=== PATIENT | male | born 1950 | race Caucasian/White ===

== ENCOUNTER → 2018-01-07 15:16 | Outpatient (CLI) | payer MEDICARE ==
[~2018-01-07 15:16] MED LIST: ASPIRIN EC81 M1 PO; CORDARONE200 MG PO; GLUCOPHAGE500 MG PO; K-DUR20 MEQ PO; LASIX40 MG PO; LOPRESSOR25 MG PO
[2018-02-05 14:32] VITALS: BMI 30.2
== END | disposition home or self-care (01) ==
LOC: D.US 15:16
DX: M79.605 Pain in left leg (principal); M79.604 Pain in right leg

== ENCOUNTER 2018-01-18 11:23 | Outpatient (CLI) | payer MEDICARE ==
[~2018-01-18] VITALS: Ht 167.6 cm; Wt 81.4 kg
--- NOTE | ~2018-01-18 | OP ---
PATIENT NAME: KAYCEE LIM MEDICAL RECORD: [id number] :54 LOCATION:D.CAT ADMISSION DATE: SURGEON: LAURITA OSBORN MD DATE OF OPERATION: 01/18/2018 PROCEDURE: Left heart catheterization, selective coronary angiography, right radial artery approach. CATHETERS: A 5-Albanian sheath, Brighton catheter. The procedure was well tolerated. The patient returned to the [place]ann[place]. Sheath was removed. TR band was placed. Left ventriculography in 30-degree DIOP view: Normal wall motion, normal systolic function. CORONARY ANATOMY: LEFT MAIN: Left main is free of disease. LAD: Has a long diffuse stenosis proximally of about 80% with fair target distally. CIRCUMFLEX: There is a high OM/ramus intermedius branch. This has a proximal stenosis and then at the bifurcation of the second branch has an ostial stenosis of 80%. True circumflex has about 80% stenosis, questionable target. RIGHT CORONARY: Has severe diffuse stenosis throughout its course with a fair target distally. IMPRESSION: Multivessel coronary artery disease with preserved LV systolic function given underlying diabetes, etc. Suspect better long-term with coronary bypass grafting, referred to CV surgery for that purpose. TRANSINT:[id number] Voice Confirmation ID: [id number] DOCUMENT ID: [id number] LAURITA OSBORN MD at 1505 CC: [id number] DICTATION DATE: 01/18/18 1404 LABORER CAR BARN: 01/18/18 1453 DEP CLI 01/18/[address] [address]
--- NOTE | ~2018-01-18 | HEMODYNAMI ---
PATIENT:KAYCEE LIM MEDICAL RECORD: [id number] : 54 LOCATION:[facility]N ADMISSION DATE: 01/18/18 Generatedon:01/18/201813:59 Patient name: KAYCEE LIM Patient #: [id number] SSN: : 1950 Date of study: 01/18/2018 Page: Of Hemodynamic Procedure Report Patient Data Patient Demographics Procedure consent was obtained First Name: KAYCEE Gender: Male Last Name: RAPHAEL : 1950 [facility] Initial: NALLELY Age: 67 year(s) Patient #: [id number] Race: Unknown Additional ID: [id number] Contact details Address: [address] [place] [address] State: [place] City: [place] Zip code: [address] Past Medical History Allergies: No known allergies Admission Admission Data Admission Date: 01/18/2018 Admission Time: 11:23 Procedure Procedure Types Cath Procedure Diagnostic Procedure LHC LHC w/Coronaries Sedation Charges Moderate Sedation up to 15 minutes Procedure Description Procedure Date Procedure Date: 01/18/2018 Procedure Start Time: 13:48 Procedure End Time: 13:59 Procedure Staff Name Function Hernesto Santiago MD Performing Physician Rosa Isela Herzog RT Monitor Alban Bolaños RN Nurse Mariella Verdugo RT Scrub Procedure Data Cath Procedure Fluoroscopy Diagnostic fluoroscopy Total fluoroscopy Time: 1.9 time: 1.9 min min Diagnostic fluoroscopy Total fluoroscopy dose: 608 dose: 608 mGy mGy Contrast Material Contrast Material Type Amount (ml) Isovue 370 49 Entry Location Entry Primary Successful Side Size Upsize Upsize Entry Closure Gutiérrez ccessful Closure Location (Fr) 1 (Fr) 2 (Fr) Remarks Device Remarks Radial Right 6 Fr Mechanical artery Short Compression Estimated blood loss: 5 ml Diagnostic catheters Device Type Used For End Catheter Placement DIAGNOSTIC Butler 110cm 5 LV Angiography Fr catheter ([id number]) DIAGNOSTIC Butler 110cm 5 Left Coronary Fr catheter (526395) Angiography DIAGNOSTIC Butler 110cm 5 Right Coronary Fr catheter ([id number]) Angiography Procedure Complications No complications Procedure Medications Medication Administration Route Dosage Oxygen etCO2 Nasal cannula 2 l/min Lidocaine 2% added to field 20 Heparin Flush Bag added to field 2 bags (1000units/500ml NS) 0.9% NaCl I.V. 100 ml/hr Versed I.V. 1 mg Fentanyl I.V. 50 mcg Radial Cocktail I.A. 1 syringe (Verapomil 2mg/Nitro 400mcg/Heparin 1500units) Versed I.V. 1 mg Fentanyl I.V. 50 mcg Hemodynamics Rest Heart Rate: 55 (bpm) Pressure Samples Time Site Value (mmHg) Purpose Heart Use Rate(bpm) 13:50 LV 95/13,15 EDP 72 13:51 AO 96/70(81) Pullback 62 13:51 LV 89/17,20 Pullback 62 Gradients Valve Time Site 1 Site 2 Mean SEP/DFP Peak To Heart Use (mmHg) (sec/min) Peak Rate (mmHg) (bpm) Aortic 13:51 LV AO 0 62 89/17,20 96/70(81) Calculations Valve P-P Mean Valve Index Valve Source Name Gradient Area Flow (cm2) Aortic 0 0 Snapshots Pre Cath Intra NCS Post Cath Vital Signs Time Heart Resp SPO2 etCO2 NIBP (mmHg) Rhythm Pain Sedation Rate (ipm) (%) (mmHg) Status Level (bpm) 13:25:38 52 22 99 Measuring NSR 0 (11) 10(A) , No pain 13:32:36 61 14 99 36.7 144/82(126) NSR 0 (11) 10(A) , No pain 13:37:21 61 16 95 36.7 140/75(120) NSR 0 (11) 10(A) , No pain 13:42:06 59 16 93 10.4 133/76(111) NSR 0 (11) 9(A) , No pain 13:46:46 59 16 94 28.4 123/73(96) NSR 0 (11) 9(A) , No pain 13:51:27 60 16 94 38.2 106/61(78) NSR 0 (11) 9(A) , No pain 13:56:07 60 17 93 30 118/65(91) NSR 0 (11) 10(A) , No pain Medications Time Medication Route Dose Verified Delivered Reason Notes Effectiveness by by 13:24:05 Oxygen etCO2 2 l/min Hernesto Phoenix used for Nasal St Dionicio Bolaños RN procedure cannula 13:24:10 Lidocaine 2% added 20ml Hernesto Eric for local to vial St Dionicio Santiago anesthetic field MD GARG 13:24:17 Heparin Flush added 2 bags Hernesto Phoenix used for Bag to St Dionicio Bolaños RN procedure (1000units/500ml field GARG NS) 13:24:26 0.9% NaCl I.V. 100 Hernesto Phoenix Per ml/hr St Dionicio Bolaños RN physician 13:35:12 Versed I.V. 1 mg Hernesto Phoenix for sedation St Dionicio Bolaños RN, MD 13:35:20 Fentanyl I.V. 50 mcg Hernesto Phoenix for sedation St Dionicio Bolaños RN, MD 13:49:47 Radial Cocktail I.A. 1 Hernesto Eric for (Verapomil syringe St Dionicio Santiago vasodilation 2mg/Nitro MD GARG 400mcg/Heparin 1500units) 13:49:51 Versed I.V. 1 mg Hernesto Eric for sedation St Dionicio Santiago MD, MD 13:49:54 Fentanyl I.V. 50 mcg Hernesto Eric for sedation St Dionicio Santiago MD, MD Procedure Log Time Note 13:03:08 Time tracking: Regular hours (M-F 7:00 - 5:00) 13:03:12 Plan of Care:Hemodynamics will remain stable., Cardiac rhythm will remain stable., Comfort level will be maintained., Respiratory function will remain adequate., Patient/ family verbilizes understanding of procedure., Procedure tolerated without complication., Recovers from procedure without complications.. 13:19:32 Patient received from Pre/Post Procedure Room to [facility] 1 Alert and oriented. Tansferred to table in Supine position. 13:19:33 Warm blankets applied, and ulices hugger turned on for patient comfort. 13:19:34 Correct patient and procedure confirmed by team. 13:19:35 Signed procedure consent form obtained from patient. 13:19:36 ECG and BP/O2 sat monitors applied to patient. 13:19:37 Full Disclosure recording started 13:24:05 Oxygen 2 l/min etCO2 Nasal cannula was administered by Alban Bolaños RN; used for procedure; 13:24:10 Lidocaine 2% 20ml vial added to field was administered by Hernesto Santiago MD; for local anesthetic; 13:24:17 Heparin Flush Bag (1000units/500ml NS) 2 bags added to field was administered by Alban Bolaños RN; used for procedure; 13:24:26 0.9% NaCl 100 ml/hr I.V. was administered by Alban Bolaños RN; Per physician; 13:24:29 Vital chart was started 13:28:54 Baseline sample Acquired. 13:28:56 Rhythm: sinus rhythm 13:29:10 H&P Date Dictated: 01/07/2018 Within 30 days and on chart., H&P Addendum completed by physician on day of procedure. (MUST COMPLETE FOR ALL OUTPATIENTS). 13:29:12 Pre-procedure instructions explained to patient. 13:29:13 Pre-op teaching completed and patient verbalized understanding. 13:29:17 Family in waiting room. 13:29:19 Patient NPO since Midnight. 13:29:42 Patient allergic to No known allergies 13:29:45 Is the patient allergic to Iodine/contrast media? No. 13:29:46 Is patient on blood thinner?No 13:29:54 Patient diabetic? Yes. 13:29:55 If diabetic: On Metformin? Yes 13:29:58 If on Metformin: Last Dose? 01/16/2018 13:30:08 Previous problem with sedation/anesthesia? No ? 13:30:09 Snore? Yes 13:30:10 Sleep apnea? No 13:30:11 Deviated septum? No 13:30:12 Opens mouth fully? Yes 13:30:13 Sticks out tongue? Yes 13:30:14 Airway obstruction? No ? 13:30:17 Dentures? No ? 13:30:19 Pre procedure: right dorsailis pedis pulse 2+ Normal; easily identifiable; not easily obliterated 13:30:22 Modified Tang's test Ulnar < 7 seconds 13:30:23 Patient pain scale 0/10 ?. 13:30:31 IV patent on arrival in left forearm with 0.9% NaCl at KVO. 13:30:35 Lab results completed and on chart. 13:30:40 Right Radial & Right Groin area was prepped with chlora-prep and draped in sterile fashion 13:30:41 Alarms reviewed by R. N. 13:30:42 Sharps counted by scrub and verified by R.N. 13:30:44 Use device set Radial Dx or PCI 13:30:45 ACIST Syringe (56126) opened to sterile field. 13:30:46 Medline Cath Pack ([id number]) opened to sterile field. 13:30:46 Bag Decanter (2002) opened to sterile field. 13:30:47 DIAGNOSTIC WIRE .035 260cm J wire (022376) opened to sterile field. 13:30:47 ACIST Hand Control (51452) opened to sterile field. 13:30:47 ACIST Manifold (78016) opened to sterile field. 13:30:48 Tegaderm 4 x 4 (1626W) opened to sterile field. 13:30:49 MBrace Wrist Support ([id number]) opened to sterile field. 13:30:50 SHEATH 6Fr Prelude Radial ([id number]) opened to sterile field. 13:33:26 Final Timeout: patient, procedure, and site verified with staff and physician. All members of the team are in agreement. 13:33:29 Right Radial site verified by team. 13:33:31 Physical assessment completed. ASA score P 2 - A patient with mild systemic disease as per Hernesto Santiago MD. 13:33:33 Sedation plan: IV Moderate Sedation Medication:Versed, Fentanyl 13:35:12 Versed 1 mg I.V. was administered by Alban Bolaños RN; for sedation; 13:35:20 Fentanyl 50 mcg I.V. was administered by Alban Bolaños RN; for sedation; 13:47:48 Procedure started. 13:48:05 Local anesthetic to right femoral artery with Lidocaine 2% by Hernesto Santiago MD.INITIAL ACCESS ONLY 13:48:29 A 6 Fr Short sheath was inserted into the Right Radial artery 13:49:11 A DIAGNOSTIC Butler 110cm 5 Fr catheter (314952) was advanced over the wire and used for LV Angiography. 13:49:47 Radial Cocktail (Verapomil 2mg/Nitro 400mcg/Heparin 1500units) 1 syringe I.A. was administered by Hernesto Santiago MD; for vasodilation; 13:49:51 Versed 1 mg I.V. was administered by Hernesto Santiago MD; for sedation; 13:49:54 Fentanyl 50 mcg I.V. was administered by Hernesto Santiago MD; for sedation; 13:51:00 LV gram done using DIOP 13:51:02 Injector settings: Ml/sec: 5, Volume: 15, 13:51:04 LV hemodynamics recorded. 13:51:16 EF : 55 % 13:51:42 A DIAGNOSTIC Butler 110cm 5 Fr catheter (083421) was advanced over the wire and used for Left Coronary Angiography. 13:54:15 A DIAGNOSTIC Butler 110cm 5 Fr catheter (309988) was advanced over the wire and used for Right Coronary Angiography. 13:54:17 Catheter removed. 13:54:35 Sheath removed intact; hemostasis achieved with Mechanical Compression to the Right Radial artery. 13:54:38 Procedure ended.(Physican Out) 13:54:41 TR BAND Standard ([id number]) opened to sterile field. 13:55:04 Fluoroscopy time 01.90 minutes. 13:55:08 Fluoroscopy dose: 608 mGy 13:55:08 Flurop Dose total: 608 13:55:12 Contrast amount:Isovue 370 49ml. 13:55:14 Sharps counted by scrub and verified by R.N. 13:55:16 TR band inflated with 12cc of air. 13:55:17 Insertion/operative site no bleeding no hematoma. 13:55:25 Post right radial artery:stable, clean and dry 13:55:27 Post Procedure Pulses reassessed and unchanged 13:55:42 Post-procedure physical assessment completed. ASA score P 2 - A patient with mild systemic disease as per Hernesto Santiago MD. 13:55:45 Post procedure rhythm: unchanged. 13:55:49 Estimated blood loss: 5 ml 13:55:50 Post procedure instruction explained to patient.Patient verbalizes understanding. 13:55:51 Patient needs reinforcement of post procedure teaching. 13:57:00 Procedure type changed to Cath procedure, Diagnostic procedure, LHC, LHC w/Coronaries, Sedation Charges, Moderate Sedation up to 15 minutes 13:57:11 Procedure and supply charges have been captured, reviewed, submitted and are correct. 13:57:18 Procedure Complication : No complications 13:57:20 See physician's report for complete and final results. 13:59:00 Vital chart was stopped 13:59:07 Report given to Pre/Post Procedure Room. 13:59:10 Patient transfered to Pre/Post Procedure Room with Stretcher. 13:59:20 Procedure ended. 13:59:20 Full Disclosure recording stopped 13:59:23 End room use (Document Last) Device Usage Item Name Manufacture Quantity Catalog Number Hospital Part Current M inimal Lot# / Charge Number Stock Stock Serial# Code ACIST Syringe Acist 1 63097 318505 466268 127406 2 0 (04836) [employer] Medline Cath Cardinal 1 [id number] 786523 03568 947852 5 Pack Health ([id number]) Bag Decanter Microtek 1 2001S 877619 68525 532338 5 (2001S) Medical Inc. DIAGNOSTIC WIRE St Sergio 1 593412 277381 280485 043784 3 0 .035 260cm J wire (095959) ACIST Hand Acist 1 08350 464011 963001 317102 5 Control (56068) Medical Systems Inc ACIST Manifold Acist 1 76597 437303 550044 466546 5 (13528) Medical Systems Inc Tegaderm 4 x 4 3M 1 1626W 956039 077854 578033 5 (1626W) MBrace Wrist Advanced 1 140-0250-00 385237 79236 259127 5 Support Vascular ([id number]) Dynamics SHEATH 6Fr Merit 1 [id number] 961661 488686 018725 5 Prelude Radial Medical ([id number]) DIAGNOSTIC Terumo 1 40-3835 260780 359782 646370 5 Butler 110cm 5 Fr catheter (987692) TR BAND Terumo 1 GOB10-[id number] 819576 225472 680312 4 0 Standard ([id number]) Signature Audit [place] Stage Time Signature Unsigned Intra-Procedure 01/18/2018 Rosa Isela 1:59:37 PM Counts RT(R) Signatures Monitor : Rosa Isela Signature : Counts RT Date : Time : [facility] [address] [place] [address], [place] [address]
[2018-01-18] MEDS ORDERED: GLUCOPHAGE500 MG PO (11:50)
[2018-01-18 12:08] VITALS: BP 157/78; Ht 167.6 cm; Wt 81.4 kg
[2018-01-18 12:24] LABS: BASOPHILS 0.2 % (0-2); EOSINOPHILS 5.5 % (0-7); HEMATOCRIT 44.6 % (42.0-54.0); HEMOGLOBIN 15.8 g/dL (13.5-17.5); IMMATURE GRANULOCYTES 0.2 % (0-5); LYMPHOCYTES 34.4 % (15-50); MCH 32.5 pg (26.0-34.0); MCHC 35.4 g/dL (31.0-37.0); MCV 91.8 fL (80.0-100.0); MEAN PLATELET VOLUME 10.8 fL (7.4-10.4); NEUTROPHILS 50.7 % (40-80); PLATELET COUNT 156 10x3/uL (130-400); RBC 4.86 10x6/uL (4.20-6.10); RDW 12.8 % (11.5-14.5); WBC 5.8 10x3/uL (4.8-10.8)
[2018-01-18 12:34] LABS: CALC OSMOLALITY 271 mosm/kg (275-300); CALCIUM 8.5 mg/dL (8.5-10.1); CARBON DIOXIDE 31.7 mmol/L (21.0-32.0); CHLORIDE - SERUM 103 mmol/L (98-107); CREATININE - SERUM 0.9 mg/dL (0.6-1.3); GLUCOSE 112 mg/dL (74-106); POTASSIUM - SERUM 3.8 mmol/L (3.5-5.1); SODIUM 136 mmol/L (136-145); UREA NITROGEN 9 mg/dL (7-18); eGFR NON AFRICAN AMERICAN 90 mL/min (90-120)
== END 2018-01-18 16:10 | disposition home or self-care (01) ==
LOC: D.CATH 11:23
PROVIDERS: Internal Medicine Interventional Cardiology
DX: I25.119 Atherosclerotic heart disease of native coronary artery with unspecified angina pectoris (principal); Z01.812 Encounter for preprocedural laboratory examination

== ENCOUNTER 2018-02-02 10:00 | Inpatient (IN) | payer MEDICARE ==
[~2018-02-02] VITALS: Ht 167.6 cm; Wt 82.3 kg
--- NOTE | ~2018-02-02 | OP ---
PATIENT NAME: KAYCEE LIM MEDICAL RECORD: [id number] :54 LOCATION:D.CVI D.CV08 ADMISSION DATE:02/04/18 SURGEON: NITO NERI MD DATE OF OPERATION: 02/04/2018 SURGEON: Nito Neri MD ASSISTANTS: 1. Jay Woodruff MD 2. AMINA Castellon OPERATIONS PERFORMED: 1. Coronary artery bypass graft times 3 (left internal mammary to LAD; reverse saphenous vein from aorta to ramus intermedius, distal branch; from aorta to right coronary artery). 2. Endoscopic saphenous vein harvest. PREOPERATIVE DIAGNOSIS: Coronary disease. POSTOPERATIVE DIAGNOSIS: Coronary disease. ANESTHESIA: General endotracheal anesthesia. ESTIMATED BLOOD LOSS: Total cardiopulmonary bypass with Cell Saver retransfusion. COMPLICATIONS: None. SPECIMENS: None. CONDITION: Stable. DISPOSITION: ICU. OPERATIVE FINDINGS: 1. Greater saphenous vein harvested first endoscopically from the right thigh; but due to large side branches, open harvest was then performed and the vein was removed with multiple large varicosities both in the section at the knee as well as in the section of the upper thigh, not usable for bypass. Left leg bridging incision was performed, obtaining 2 sections of usable vein. 2. Good quality internal mammary artery. The LAD was a 2.0-mm vessel deep intramyocardial with severe distal disease. 3. The ramus intermedius/first OM distal branch was a 2.5-mm intramyocardial vessel with severe disease. 4. The posterior descending artery was small, less than 1.25-mm, and was dissected out all the way from its origin to intermediate down the inferior wall of the heart by dividing branches of the posterior descending vein to expose the vessel. It was felt to be nonbypassable due to its small size with relatively large vein. Therefore, a soft spot between plaques in the right coronary artery was used for the anastomosis and this was a severely diseased 1.5-mm vessel, but with reasonable outflow after anastomosis. 5. Transesophageal echocardiography with no valvular incompetence or stenosis and good contractility before and after cardiopulmonary bypass. OPERATIVE INDICATION: Coronary disease. OPERATIVE REPORT [id number] KAYCEE LIM OPERATIVE SUMMARY IN DETAIL: The patient was brought to the operating suite. General anesthesia was obtained. The patient was prepped and draped. Endoscopic vein harvest of the right thigh was performed; but after the vessel was dissected out, large varicosities were noted, therefore converted to open harvest with multiple incisions. Side branches clipped. Vessel eventually ligated proximally and distally and removed, but noted to be varicosed and then vein harvested with open harvest. The left leg with side branches were clipped. Vessel ligated proximally and distally, and removed later in the case. Drains were placed and the leg was closed with subcutaneous suture and clips. Median sternotomy incision was made. Subcutaneous tissue was divided with electrocautery. Sternum was divided with a saw. Left hemisternum was elevated. Left pleural cavity was entered. Left internal mammary vein was taken as a pedicle graft. Sternal retractor was placed. Pericardium was opened. Aorta was cannulated. Heparin was given. Dual stage venous cannula was inserted. Internal mammary was clipped distally and made ready for anastomosis. After activated clotting time was appropriately elevated, the patient was placed on cardiopulmonary bypass. Sites for distal anastomosis were inspected. Antegrade cardioplegia needle was inserted. The patient was cooled. Cross-clamp was placed. Cardioplegia was given antegrade and this was repeated at 15- to 20-minute intervals including down the completed vein grafts. Distal anastomoses were performed in a standard technique, proximal anastomosis in single cross-clamp technique. With the patient in steep Trendelenburg position, cross-clamp removed. Aortic root de-aired. Proximal anastomosis was tied down. Vein graft was de-aired and flow was restored. Proximal and distal anastomotic sites were inspected for bleeding. The patient resumed a spontaneous rhythm, fully rewarmed, weaned off cardiopulmonary bypass, and was stable. The patient was decannulated. Cannula sites were oversewn. Protamine was given. Thorough irrigation was undertaken. Grafts lay appropriate and hemostasis was again ensured. Ventricular pacing wire was placed. Drains were placed in mediastinum and left pleural cavity. The pericardial fat was loosely reapproximated in the midline. Left chest was evacuated and irrigated. Internal mammary harvest site was inspected for bleeding. Sternum was closed with wires. Fascia was closed. Subcutaneous tissue was closed. Skin was closed. Dermabond was placed. Needle and sponge counts were reported as correct. The patient was taken to the ICU in stable condition. TRANSINT:[id number] Voice Confirmation ID: [id number] DOCUMENT ID: [id number] NITO NREI MD at 0747 CC: [id number] DICTATION DATE: 02/04/18 1604 CORK INSULATOR: 02/04/18 1757 ADM IN [place] [id number] [place] [id number]
--- NOTE | ~2018-02-02 | TEE ---
PATIENT:KAYCEE LIM MEDICAL RECORD: [id number] LOCATION:[place] [address] AGE OF PATIENT: 67 ADMISSION DATE: 02/04/18 SEX: M REFERRING PHYSICIAN: INTERPRETING PHYSICIAN: LEONARDA ZAMARRIPA MD TRANSESOPHAGEAL ECHOCARDIOGRAM Date: 02/04/18 DEJUAN CHARGE Y INDICATIONS: CABG PREMEDICATIONS: PATIENT'S RESPONSE PROCEDURE DOPPLER MEASUREMENTS: LVIT LA PA RA LVOT RVOT Asc. Ao AV Gradient Peak AV Mean AV Area MV Gradient Peak MV Mean MV Area INTERPRETATION: Doppler: 2-D: COLOR FLOW DOPPLER NORMAL SALINE STUDY: MISCELLANOUS: DIAGNOSIS: PLAN: Probation Counselor:3 Dr. Blair Vanstone Machine Operator: Tevin GARCIA COMMENTS: DATE OF SERVICE: 02/04/2018 PROCEDURE: Transesophageal echo evaluation of valvular structures during bypass surgery. FINDINGS: 1. Left ventricular chamber size is within normal limits. Left ventricular systolic function is normal. Overall ejection fraction estimated at 60%. 2. Left atrium, right atrium, and right ventricular chamber sizes are within TRANSESOPHAGEAL ECHOCARDIOGRAM REPORT [id number] KAYCEE LIM normal limits. 3. Valvular structures have normal structure and motion. 4. Doppler interrogation reveals only trace mitral regurgitation. No other valvular insufficiency or stenosis. 5. No evidence of pericardial effusion or left ventricular thrombus. TRANSINT:[id number] Voice Confirmation ID: [id number] DOCUMENT ID: [id number] at 1834 CC: [id number] DICTATION DATE: 02/04/18 1408 NON ACOUSTIC OPERATOR: 02/04/18 1413 ADM IN [place] [id number] [place] [address]
--- NOTE | ~2018-02-02 | EC ---
PATIENT:KAYCEE LIM DATE OF SERVICE: 02/04/18 SEX: M MEDICAL RECORD: [id number] DATE OF : 54 LOCATION:[place] [address] AGE OF PATIENT: 67 ADMISSION DATE: 02/04/18 REFERRING PHYSICIAN: INTERPRETING PHYSICIAN: LEONARDA ZAMARRIPA MD ECHOCARDIOGRAM REPORT ECHO CHARGES 4 ECHO COMPLETE Date: 02/09 CLINICAL DIAGNOSIS: NEW ONSET OF AFIB, POST CABG ECHOCARDIOGRAPHIC MEASUREMENTS (adult normal given) AC root (d.<3.7cm) 3.8 cm LV Septum d (<1.2 cm> 1.4 cm Valve Excursion 2.1 cm LV Septum (systole) 1.5 cm Left Atria (s.<4.0cm> 4.3 cm LVPW d(<1.2cm) 1.3 cm RV (d.<2.3cm) 3.0 cm LVPW (sytole) 1.5 cm LV diastole(<5.6CM) 5.2 cm MV E-F(>70mm/sec) cm LV systole 3.3 cm LVOT Diameter 2.3 cm MV exc.(>10mm) 1.4 cm Est.ejection fraction (50-75%) % DOPPLER: LVIT cm/sec A 63.0 cm/sec E 79.0 cm/sec LA cm/sec RVSP 33 mmHg LVOT 102 cm/sec AOP1/2T m/s Asc. Ao 147 cm/sec RVOT 106 cm/sec RA cm/sec PA 128 cm/sec AV Gradient Peak 8.59 mmHg AV Mean 4.79 mmHg AV Area 2.5 cm MV Gradient Peak 5.05 mmHg MV Mean 1.57 mmHg MV Area cm COMMENTS: Campus Chaplain: Kwabena ROSEN [employer]: 3 Dr. Blair TAPE# PACS Pericardial Effusion N DATE OF SERVICE: 02/09/2018 FINDINGS: 1. Left ventricular chamber size is within normal limits. Left ventricular systolic function is normal. Overall ejection fraction is estimated at 55%. 2. Left atrium is mildly dilated at 4.3 cm. Right atrium and right ventricle chamber sizes are as well mildly dilated. 3. Valvular structures have normal structure and motion. 4. Doppler interrogation reveals mild tricuspid regurgitation. No other valvular insufficiency or stenosis. Pulmonary systolic pressure is estimated at ECHOCARDIOGRAM REPORT [id number] KAYCEE LIM 33 mmHg. 5. No evidence of pericardial effusion or left ventricular thrombus. TRANSINT:[id number] Voice Confirmation ID: [id number] DOCUMENT ID: [id number] LEONARDA ZAMARRIPA MD at 1642 CC: [id number] DICTATION DATE: 02/09/18 1641 FLEA MARKET SELLER: 02/09/18 1842 DIS IN 02/10/18 [place] [id number] [place] [id number]
[~2018-02-02 10:00] MED LIST changes: -ASPIRIN EC81 M1 PO; -CORDARONE200 MG PO; -K-DUR20 MEQ PO; -LASIX40 MG PO; -LOPRESSOR25 MG PO
[2018-02-02] MEDS ORDERED: ASPIRIN EC81 M1 PO (12:32)
[2018-02-02] MEDS ORDERED: GLUCOPHAGE500 MG PO (12:33)
[2018-02-02 14:12] LABS: APPEARANCE HAZY (CLEAR); BACTERIA FEW /hpf (NONE SEEN); BILIRUBIN NEGATIVE (NEGATIVE); COLOR DK YELLOW (YELLOW); EPITHELIAL CELLS RARE /hpf (0-5); GLUCOSE NEGATIVE (NEGATIVE); KETONE NEGATIVE (NEGATIVE); NITRITE NEGATIVE (NEGATIVE); PROTEIN NEGATIVE (NEGATIVE); SPECIFIC GRAVITY 1.015 (1.005-1.020)
[2018-02-02 14:13] LABS: RED CELLS - URINE NONE SEEN /hpf (0-5); WHITE CELLS - URINE NSEEN /hpf (0-5)
[2018-02-02 16:34] LABS: BASOPHILS 0.2 % (0-2); EOSINOPHILS 6.1 % (0-7); HEMATOCRIT 46.4 % (42.0-54.0); HEMOGLOBIN 16.3 g/dL (13.5-17.5); IMMATURE GRANULOCYTES 0.2 % (0-5); LYMPHOCYTES 35.3 % (15-50); MCH 32.2 pg (26.0-34.0); MCHC 35.1 g/dL (31.0-37.0); MCV 91.7 fL (80.0-100.0); MONOCYTES 8.4 % (2-11); NEUTROPHILS 49.8 % (40-80); PLATELET COUNT 156 10x3/uL (130-400); RBC 5.06 10x6/uL (4.20-6.10); RDW 12.9 % (11.5-14.5); WBC 5.7 10x3/uL (4.8-10.8)
[2018-02-02 16:54] LABS: APTT 25.3 SECONDS (22.8-39.4); INR 1.01 (0.85-1.17); PROTIME 12.9 SECONDS (11.6-15.0)
[2018-02-02 17:36] LABS: ALBUMIN 3.7 g/dL (3.4-5.0); ALKALINE PHOSPHATASE 75 U/L (46-116); ALT (SGPT) 40 U/L (10-68); CALC OSMOLALITY 276 mosm/kg (275-300); CALCIUM 8.7 mg/dL (8.5-10.1); CARBON DIOXIDE 31.7 mmol/L (21.0-32.0); CHLORIDE - SERUM 101 mmol/L (98-107); CHOLESTEROL, TOTAL 217 mg/dL (0-200); GLUCOSE 100 mg/dL (74-106); PHOSPHOROUS 3.4 mg/dL (2.5-4.9); PROTEIN - SERUM 7.2 g/dL (6.4-8.2); SODIUM 138 mmol/L (136-145); T4 THYROXIN - FREE 0.98 ng/dL (0.76-1.46); THYROID STIMULATING HORMONE 1.58 uIU/mL (0.36-3.74); UREA NITROGEN 14 mg/dL (7-18); URIC ACID 4.8 mg/dL (2.6-7.2); eGFR NON AFRICAN AMERICAN 80 mL/min (90-120)
[2018-02-04] VITALS (38 sets, daily range): BP systolic 104–152; BP diastolic 43–70; BMI 28.9
[2018-02-05] VITALS (45 sets, daily range): BP systolic 98–154; BP diastolic 45–76; Ht 167.6 cm; Wt 82.3 kg
[2018-02-05 06:04] LABS: HEMATOCRIT 38.6 % (42.0-54.0); HEMOGLOBIN 12.9 g/dL (13.5-17.5); MCH 31.3 pg (26.0-34.0); MCHC 33.4 g/dL (31.0-37.0); MCV 93.7 fL (80.0-100.0); MEAN PLATELET VOLUME 11.2 fL (7.4-10.4); RBC 4.12 10x6/uL (4.20-6.10); RDW 13.4 % (11.5-14.5); WBC 15.3 10x3/uL (4.8-10.8)
[2018-02-05 06:16] LABS: ALBUMIN 2.6 g/dL (3.4-5.0); ANION GAP 6.2 mmol/L (8-16); BILIRUBIN - TOTAL 1.34 mg/dL (0.2-1.3); CALCIUM 7.3 mg/dL (8.5-10.1); CARBON DIOXIDE 29.9 mmol/L (21.0-32.0); CREATININE - SERUM 1.2 mg/dL (0.6-1.3)
[2018-02-05 06:19] LABS: POTASSIUM - SERUM 4.1 mmol/L (3.5-5.1)
[2018-02-06] VITALS (24 sets, daily range): BP systolic 109–147; BP diastolic 41–81
[2018-02-06 06:23] LABS: HEMATOCRIT 37.4 % (42.0-54.0); HEMOGLOBIN 12.4 g/dL (13.5-17.5); MCH 31.5 pg (26.0-34.0); MCHC 33.2 g/dL (31.0-37.0); MCV 94.9 fL (80.0-100.0); MEAN PLATELET VOLUME 11.6 fL (7.4-10.4); RBC 3.94 10x6/uL (4.20-6.10); RDW 13.5 % (11.5-14.5); WBC 15.9 10x3/uL (4.8-10.8)
[2018-02-06 07:00] LABS: ALBUMIN 2.5 g/dL (3.4-5.0); ALKALINE PHOSPHATASE 49 U/L (46-116); ALT (SGPT) 25 U/L (10-68); BILIRUBIN - TOTAL 1.91 mg/dL (0.2-1.3); CALC OSMOLALITY 274 mosm/kg (275-300); CALCIUM 7.4 mg/dL (8.5-10.1); CHLORIDE - SERUM 103 mmol/L (98-107); GLUCOSE 167 mg/dL (74-106); POTASSIUM - SERUM 4.1 mmol/L (3.5-5.1); PROTEIN - SERUM 5.3 g/dL (6.4-8.2); SODIUM 135 mmol/L (136-145); eGFR NON AFRICAN AMERICAN 80 mL/min (90-120)
[2018-02-06 07:01] LABS: UREA NITROGEN 15 mg/dL (7-18)
[2018-02-07] VITALS (24 sets, daily range): BP systolic 94–139; BP diastolic 43–79
[2018-02-07 05:19] LABS: HEMATOCRIT 33.8 % (42.0-54.0); HEMOGLOBIN 11.4 g/dL (13.5-17.5); MCH 31.4 pg (26.0-34.0); MCHC 33.7 g/dL (31.0-37.0); MCV 93.1 fL (80.0-100.0); MEAN PLATELET VOLUME 11.2 fL (7.4-10.4); RBC 3.63 10x6/uL (4.20-6.10); RDW 13.5 % (11.5-14.5)
[2018-02-07 05:20] LABS: WBC 11.6 10x3/uL (4.8-10.8)
[2018-02-07 05:37] LABS: ALBUMIN 2.2 g/dL (3.4-5.0); ALKALINE PHOSPHATASE 44 U/L (46-116); ALT (SGPT) 27 U/L (10-68); BILIRUBIN - TOTAL 1.32 mg/dL (0.2-1.3); CALC OSMOLALITY 282 mosm/kg (275-300); CALCIUM 7.3 mg/dL (8.5-10.1); CARBON DIOXIDE 29.7 mmol/L (21.0-32.0); CHLORIDE - SERUM 105 mmol/L (98-107); GLUCOSE 136 mg/dL (74-106); PROTEIN - SERUM 5.2 g/dL (6.4-8.2); SODIUM 140 mmol/L (136-145); UREA NITROGEN 18 mg/dL (7-18); eGFR NON AFRICAN AMERICAN 80 mL/min (90-120)
[2018-02-08] VITALS (25 sets, daily range): BP systolic 97–136; BP diastolic 42–91
[2018-02-08 06:56] LABS: ALBUMIN 2.1 g/dL (3.4-5.0); ALKALINE PHOSPHATASE 41 U/L (46-116); ALT (SGPT) 25 U/L (10-68); BILIRUBIN - TOTAL 0.99 mg/dL (0.2-1.3); CALC OSMOLALITY 287 mosm/kg (275-300); CALCIUM 7.1 mg/dL (8.5-10.1); CARBON DIOXIDE 27.4 mmol/L (21.0-32.0); CHLORIDE - SERUM 109 mmol/L (98-107); CREATININE - SERUM 0.8 mg/dL (0.6-1.3); GLUCOSE 108 mg/dL (74-106); POTASSIUM - SERUM 3.9 mmol/L (3.5-5.1); PROTEIN - SERUM 4.7 g/dL (6.4-8.2); SODIUM 143 mmol/L (136-145); UREA NITROGEN 17 mg/dL (7-18); eGFR NON AFRICAN AMERICAN > 90 mL/min (90-120)
[2018-02-08 07:12] LABS: HEMATOCRIT 30.5 % (42.0-54.0); HEMOGLOBIN 10.2 g/dL (13.5-17.5); MCH 31.4 pg (26.0-34.0); MCHC 33.4 g/dL (31.0-37.0); MCV 93.8 fL (80.0-100.0); MEAN PLATELET VOLUME 11.5 fL (7.4-10.4); RBC 3.25 10x6/uL (4.20-6.10); RDW 13.6 % (11.5-14.5); WBC 7.3 10x3/uL (4.8-10.8)
[2018-02-09] VITALS (24 sets, daily range): BP systolic 89–139; BP diastolic 38–83
[2018-02-09 06:27] LABS: HEMOGLOBIN 10.5 g/dL (13.5-17.5); MCHC 32.8 g/dL (31.0-37.0); MCV 94.4 fL (80.0-100.0); MEAN PLATELET VOLUME 11.2 fL (7.4-10.4); RBC 3.39 10x6/uL (4.20-6.10); RDW 13.8 % (11.5-14.5); WBC 7.3 10x3/uL (4.8-10.8)
[2018-02-09 07:02] LABS: ALBUMIN 2.2 g/dL (3.4-5.0); ALKALINE PHOSPHATASE 42 U/L (46-116); BILIRUBIN - TOTAL 0.89 mg/dL (0.2-1.3); CALC OSMOLALITY 282 mosm/kg (275-300); CALCIUM 7.3 mg/dL (8.5-10.1); CARBON DIOXIDE 25.3 mmol/L (21.0-32.0); CHLORIDE - SERUM 108 mmol/L (98-107); CREATININE - SERUM 0.9 mg/dL (0.6-1.3); GLUCOSE 133 mg/dL (74-106); POTASSIUM - SERUM 3.8 mmol/L (3.5-5.1); PROTEIN - SERUM 5.6 g/dL (6.4-8.2); SODIUM 140 mmol/L (136-145); UREA NITROGEN 17 mg/dL (7-18); eGFR NON AFRICAN AMERICAN 90 mL/min (90-120)
[2018-02-09 07:06] LABS: ALT (SGPT) 32 U/L (10-68)
[2018-02-10] VITALS (12 sets, daily range): BP systolic 100–143; BP diastolic 25–75
[2018-02-10] MEDS ORDERED: LOPRESSOR25 MG PO (08:14)
[2018-02-10] MEDS ORDERED: CORDARONE200 MG PO ×2 (08:14→08:19)
[2018-02-10] MEDS ORDERED: LASIX40 MG PO (08:16)
[2018-02-10] MEDS ORDERED: K-DUR20 MEQ PO (08:16)
== END 2018-02-10 14:00 | disposition home or self-care (01) | DRG 236 ==
LOC: D.SDCHOLD 14:00 → D.CVICU 02-04 05:00 → D.SDCHOLD 02-04 07:30 → D.CVICU 02-04 10:33 → D.SDCHOLD 02-04 14:00 → D.CVICU 02-10 14:00
PROVIDERS: Thoracic Surgery (Cardiothoracic Vascular Surgery)
PROC: 021109W Bypass Coronary Artery, Two Arteries from Aorta with Autologous Venous Tissue, Open Approach (ICD-10-PCS; 2018-02-04)
PROC: 06BP0ZZ Excision of Right Saphenous Vein, Open Approach (ICD-10-PCS; 2018-02-04)
PROC: B24BZZ4 Ultrasonography of Heart with Aorta, Transesophageal (ICD-10-PCS; 2018-02-04)
PROC: 5A1221Z Performance of Cardiac Output, Continuous (ICD-10-PCS; 2018-02-04)
PROC: 02100Z9 Bypass Coronary Artery, One Artery from Left Internal Mammary, Open Approach (ICD-10-PCS; principal; 2018-02-04 07:30)
DX: I25.10 Atherosclerotic heart disease of native coronary artery without angina pectoris (principal); E87.5 Hyperkalemia; I48.0 Paroxysmal atrial fibrillation; F17.200 Nicotine dependence, unspecified, uncomplicated; E11.9 Type 2 diabetes mellitus without complications; I83.91 Asymptomatic varicose veins of right lower extremity; R31.0 Gross hematuria; D72.829 Elevated white blood cell count, unspecified

== ENCOUNTER → 2018-02-24 10:04 | Outpatient (CLI) | payer MEDICARE ==
[2018-02-05 14:32] VITALS: BMI 30.2
[~2018-02-24 10:04] MED LIST changes: +ASPIRIN EC81 M1 PO; +CORDARONE200 MG PO; +K-DUR20 MEQ PO; +LASIX40 MG PO; +LOPRESSOR25 MG PO
[2018-02-24 10:52] LABS: BASOPHILS 0.3 % (0-2); EOSINOPHILS 3.2 % (0-7); HEMATOCRIT 37.6 % (42.0-54.0); HEMOGLOBIN 12.4 g/dL (13.5-17.5); IMMATURE GRANULOCYTES 0.5 % (0-5); LYMPHOCYTES 18.8 % (15-50); MEAN PLATELET VOLUME 10.3 fL (7.4-10.4); MONOCYTES 8.9 % (2-11); NEUTROPHILS 68.3 % (40-80); RDW 13.7 % (11.5-14.5); WBC 7.8 10x3/uL (4.8-10.8)
[2018-02-24 11:03] LABS: PLATELET COUNT 310 10x3/uL (130-400)
[2018-02-24 11:06] LABS: ALBUMIN 2.9 g/dL (3.4-5.0); ANION GAP 11.1 mmol/L (8-16); BILIRUBIN - TOTAL 0.9 mg/dL (0.2-1.3); CALCIUM 8.5 mg/dL (8.5-10.1); CARBON DIOXIDE 29.5 mmol/L (21.0-32.0); CREATININE - SERUM 1.1 mg/dL (0.6-1.3); POTASSIUM - SERUM 4.6 mmol/L (3.5-5.1); PROTEIN - SERUM 7.1 g/dL (6.4-8.2)
== END | disposition home or self-care (01) ==
LOC: D.LAB 08:30 → D.RAD 09:15 → D.LAB 10:04
PROVIDERS: Thoracic Surgery (Cardiothoracic Vascular Surgery)
DX: I25.10 Atherosclerotic heart disease of native coronary artery without angina pectoris (principal); D64.9 Anemia, unspecified; J90 Pleural effusion, not elsewhere classified

== ENCOUNTER → 2018-03-10 09:20 | Outpatient (CLI) | payer MEDICARE ==
[2018-02-05 14:32] VITALS: BMI 30.2
== END | disposition home or self-care (01) ==
LOC: D.RAD 09:15
DX: J91.8 Pleural effusion in other conditions classified elsewhere (principal)

== ENCOUNTER → 2019-05-10 09:02 | Outpatient (CLI) | payer MEDICARE ==
[2018-02-05 14:32] VITALS: BMI 30.2
--- NOTE | 2019-05-17 08:48 | EC ---
PATIENT:KAYCEE LIM DATE OF SERVICE: 05/10/19 SEX: M MEDICAL RECORD: [id number] DATE OF : 54 LOCATION:[facility] AGE OF PATIENT: 68 ADMISSION DATE: 05/10/19 REFERRING PHYSICIAN: INTERPRETING PHYSICIAN: LAURITA OSBORN MD ECHOCARDIOGRAM REPORT ECHO CHARGES 4 ECHO COMPLETE Date: 05/10/19 CLINICAL DIAGNOSIS: CAD HX HTN/DM ECHOCARDIOGRAPHIC MEASUREMENTS (adult normal given) AC root (d.<3.7cm) 4.3 cm LV Septum d (<1.2 cm> 1.2 cm Valve Excursion 2.2 cm LV Septum (systole) 1.4 cm Left Atria (s.<4.0cm> 3.9 cm LVPW d(<1.2cm) 1.3 cm RV (d.<2.3cm) 4.8 cm LVPW (sytole) 1.5 cm LV diastole(<5.6CM) 4.5 cm MV E-F(>70mm/sec) cm LV systole 3.1 cm LVOT Diameter 2.0 cm MV exc.(>10mm) 1.5 cm Est.ejection fraction (50-75%) % DOPPLER: LVIT cm/sec A 61.0 cm/sec E 52.0 cm/sec LA cm/sec RVSP 28 mmHg LVOT 98 cm/sec AOP1/2T m/s Asc. Ao 105 cm/sec RVOT 90 cm/sec RA cm/sec PA 98 cm/sec AV Gradient Peak 4.21 mmHg AV Mean 2.28 mmHg AV Area 2.9 cm MV Gradient Peak 2.26 mmHg MV Mean 0.86 mmHg MV Area cm COMMENTS: Head Bone Grinder: 2 HARRY ROSEN Electric Mule Driver: 3 Dr. Blair TAPE# PACS Pericardial Effusion N DATE OF SERVICE: Adequate 2D echo, color flow, spectral Doppler, and M-mode. Borderline LVH. LV internal dimension is normal. Wall motion is normal. EF is greater than or equal to 55%. Aortic valve is tricuspid and no evidence of stenosis on Doppler interrogation. Left atrium normal at 3.9 cm. Mitral valve shows no prolapse. Trivial MR. Right-sided chambers are grossly normal. Trivial TR. ECHOCARDIOGRAM REPORT [id number] KAYCEE LIM TRANSINT:[id number] Voice Confirmation ID: [id number] DOCUMENT ID: [id number] LAURITA OSBORN MD at 0848 CC: [id number] DICTATION DATE: 05/12/19 1526 COILED TUBING SUPERVISOR: 05/12/19 1747 DEP CLI 05/10/19 [place] [id number] [place] [id number]
== END | disposition home or self-care (01) ==
LOC: D.HCCECHO 09:00
PROVIDERS: ATTEND Internal Medicine Interventional Cardiology
DX: I25.10 Atherosclerotic heart disease of native coronary artery without angina pectoris (principal)

== ENCOUNTER → 2019-08-12 10:38 | Outpatient (CLI) | payer MEDICARE ==
[2019-08-10 12:13] VITALS: BMI 31.4
[~2019-08-12 10:38] MED LIST changes: +HYDROCODON-ACE1 EA10 PO; +PLAVIX75 MG PO; +ULTRAM50 MG PO
== END | disposition home or self-care (01) ==
LOC: D.LAB 10:38
PROVIDERS: ATTEND Urology
DX: N40.0 Benign prostatic hyperplasia without lower urinary tract symptoms (principal)

== ENCOUNTER 2019-08-18 11:40 | Day surgery (SDC) | payer MEDICARE ==
--- NOTE | 2019-08-16 14:15 | NUR ---
notified day at dr grey's office that pt was still taking his plavix. day stated she would contact the pt's daughter to verify if that was correct and then call this nurse back.
--- NOTE | 2019-08-16 14:30 | NUR ---
day rt call stated that dr grey instructed to make sure pt doesn't take his plavix for the next 2 days. she stated she also instructed the pt's daughter over the phone. instructions given to pt. mynor valverde.
[2019-08-16 14:34] LABS: HEMATOCRIT 44.6 % (42.0-54.0); HEMOGLOBIN 15.2 g/dL (13.5-17.5); MCH 31.7 pg (26.0-34.0); MCHC 34.1 g/dL (31.0-37.0); MCV 93.1 fL (80.0-100.0); MEAN PLATELET VOLUME 10.9 fL (7.4-10.4); RBC 4.79 10x6/uL (4.20-6.10); RDW 12.8 % (11.5-14.5); WBC 8.2 10x3/uL (4.8-10.8)
[2019-08-16 14:57] LABS: CALCIUM 8.8 mg/dL (8.5-10.1); CARBON DIOXIDE 27.2 mmol/L (21.0-32.0); CREATININE - SERUM 1.1 mg/dL (0.6-1.3); POTASSIUM - SERUM 4.2 mmol/L (3.5-5.1)
[~2019-08-18] VITALS: Ht 170.2 cm; Wt 86.4 kg
[2019-08-18] MEDS ORDERED: CYCLOBENZAPRINE10 MG PO (12:08)
[2019-08-18 12:09] VITALS: BP 126/68; BMI 29.8
--- NOTE | 2019-08-18 17:35 | NUR ---
PATIENT AMBULATES TO BATHROOM STATING NEED TO HAVE BM, AFTER SITTING ON TOILET, PATIENT STATES HE MOSTLY PASSED GAS BUT FEELS A LOT BETTER, RETURNS TO BED. AFTER RETURNING TO BED, PATIENT STATES THE BURNING HE WAS EXPERIENCING IS A LOT BETTER NOW.
--- NOTE | 2019-08-18 17:39 | NUR ---
1445-REC'D FROM SURGERY. DROWSY, EASILY AROUSED WITH VERBAL STIMULI.SALAZAR PATENT NOT DRAINING BY GRAVITY. WHEN OPENINGS EYES REPORTS PAIN 8/10,DESCRIBES BURNING AND FEELS LIKE HE HAS TO VOID. DR COHEN TO ROOM VERBAL ORDER TO IRRIGATE WITH NS.
--- NOTE | 2019-08-18 17:42 | NUR ---
1500- IRRIGATED 30CC NS WITHOUT HESITATION. APPROXIMATELY 10 CC RETUEN. PT GRUNTING OFF AND ON REPORTING PAIN.
--- NOTE | 2019-08-18 17:45 | NUR ---
1515-PT CONTINUE TO MOAN AND REPORT PAIN NOW 03/31. URINE DRAINING ONLY WHEN PT BEARS DOWN OR STRAINING. CONTACTED VIA PHONE NEW T.O TO ADMINISTER B AND O SUPPOSITORY. ADMINISTERED PER RECTUM. VSS. ICE WATER AT BEDSIDE. CL IN EASY REACH. DAUGHTERS AT BEDSIDE
--- NOTE | 2019-08-18 17:49 | NUR ---
1545-PT CONTINUE TO REPORT PAIN 10/10 AT THIS TIME. CATH IS NOT DRAINING AT THIS TIME. DAUGHTER REPORTS PT CAME IN WITH CAUDET CATH FROM HOME. PT RETURNED FROM SURGERY WITH REGULAR SALAZAR CATH.
--- NOTE | 2019-08-18 17:53 | NUR ---
PATIENT STEPHANIE, STATES HIS PAIN IS GETTING MUCH WORSE AGAIN, THIS NURSE ATTEMPTS TO CONTACT DR COHEN BY CELL PHONE DUE TO NOT HAVING ORDERS FOR ADMISSION OR FURTHER PAIN MEDICATION DR COHEN REPORTEDLY TOLD TOÑA GORE RN THAT HE WOULD ORDER. DR COHEN DOES NOT ANSWER CELL PHONE AT THIS TIME. [address] COHEN ON CELL PHONE AGAIN, NO ANSWER. [address] COHEN'S OFFICE AND REQUEST MADE FOR DR COHEN TO CALL THROUGH ANSWERING SERVICE
--- NOTE | 2019-08-18 17:57 | NUR ---
1600-USING STERILE TECHNIQUE INSERTED CAUDET CATH. IMMEDIATE FELDMAN RED URINE FLOW BY GRAVITY. VSS. WILL CONTINUE TO MONITOR URINE FLOW AND PAIN.
--- NOTE | 2019-08-18 18:01 | NUR ---
1711- CONTINUE TO REPORT PAIN 03/31. ADMINISTERED NORCO 5/325MG 1 BY MOUTH.
--- NOTE | 2019-08-18 18:02 | NUR ---
1720- BLADDER SCAN REVEALED 56 ML OF URINE IN BLADDER. CONTINUE TO REPORT 10/10 PAIN WITH MOANING. DESCRIBES BURNING AND FEELING LIKE HE HAS TO URINATE.
--- NOTE | 2019-08-18 18:03 | NUR ---
1730-NOTIFIED PT AND FAMILY AT BEDSIDE OF 23 HOUR OBS ADMIT ORDERS. PT REPORTS HE FEELS LIKE HE HAS TO HAVE A BM. ASSISTED TO RESTROOM. ABLE TO AMBULATE WITH STAND BY ASSIST WITH SLOW STEADY GAIT. PT PASSING GAS AMBULATING.
--- NOTE | 2019-08-18 18:03 | NUR ---
1988-CONTACTED DR COHEN VIA PHONE REGARDING PAIN. ORDER FOR 23 HOUR OBS FOR PAIN CONTROL.
--- NOTE | 2019-08-18 18:05 | NUR ---
1745-REPORT OFF TO BEATRIZ WOOTEN.
[2019-08-18 20:00] VITALS: BP 112/60
[2019-08-18 23:03] VITALS: BP 112/60; Ht 170.2 cm; Wt 86.4 kg
[2019-08-19] VITALS: BP 129/57
[2019-08-19 08:11] VITALS: BP 125/63
[2019-08-19 08:41] VITALS: BP 111/56
--- NOTE | 2019-08-19 08:49 | NUR ---
PRN GIVEN FOR PAIN, HE IS BLOODY AROUND HIS PENIS, (CLEANED HIM). THE URINE IS BLOODY IN COLOR. NO NEW ISSUES.
--- NOTE | 2019-08-19 09:16 | OP ---
PATIENT NAME: KAYCEE TOURE MEDICAL RECORD: [id number] :54 LOCATION:[id number] ADMISSION DATE: SURGEON: SHUBHAM COHEN MD DATE OF OPERATION: 08/18/2019 SURGEON: Shubham Cohen MD SYSTEMS SUPPORT OFFICER: ALLAN Castro. DIAGNOSIS: Obstructive BPH with urinary retention. PSA 2.35, IPSS is 29 and quality of life score is 5. PROCEDURE: UroLift times 7 units deployed, 6 held in position. FINDINGS: Bilateral lateral lobe hyperplasia with no median lobe. Single ureteral orifices bilaterally with no bladder tumors. Trabeculated bladder. BLOOD LOSS: Minimal. CLINICAL HISTORY: This is a 69-year-old male, who had a left inguinal hernia repair and subsequently had urinary retention. He was catheterized in the Emergency Room, 1.5 liters. Prior to the hernia surgery, he had issues with voiding including nocturia times 4-6, daytime voiding every 2 hours with urge incontinence. He has a slow urinary flow. He comes now to have the UroLift procedure done. He is not allergic to any medications. He was given Levaquin IV carbon brush maker to the OR. DESCRIPTION OF PROCEDURE: The patient was placed in the lithotomy position after having been given IV sedation. The UroLift scope was then introduced. Cystoscopic findings are as outlined above. At 1.5 cm distal to the bladder neck at the anterolateral sulcus, we placed one unit in each side. Then, we went to the verumontanum level and at the anterolateral sulcus placed one unit in each side. This created an anterior urethral channel. However, the mid portion of the prostatic urethra was still obstructed by the bulging lateral lobes. Therefore, I placed an UroLift unit on each side in the mid portion of the prostatic urethra at the mid distance in an anterior and posterior direction. Once these units were in, the prostatic urethra was now wide open. Through the scope, we inserted a sensor wire. The scope was then removed entirely. Over the sensor wire, we inserted a 16-[place]ep[place]-tip Britton catheter. Once the catheter was in the bladder fully, then the balloon was inflated with 10 cc of sterile water. The catheter was then put to bag drainage. I will see the patient in followup next week to remove the Britton catheter for a voiding trial. TRANSINT:[id number] Voice Confirmation ID: [id number] DOCUMENT ID: [id number] SHUBHAM COHEN MD at 0916 CC: [id number] DICTATION DATE: 08/18/19 144 ENTRY TECH: 08/18/19 2308 [facility] [address] [place] [id number]
[2019-08-19] MEDS ORDERED: HYDROCODON-ACE1 EA10 PO (09:54)
--- NOTE | 2019-08-19 11:17 | NUR ---
DID DISCHARGE EDUCATION REGARDING HIS LEG BAG AND A NEW SALAZAR BAG. CLEANED HIS PENIS AND SALAZAR TUBING THIS MORNING. REMOVED HIS IV, HIS DAUGHTER IS PICKING HIM UP. 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
== END 2019-08-19 12:47 | disposition home or self-care (01) ==
LOC: D.OPS 11:40 → D.PAN 13:45 → D.OPS 13:45 → D.MS 19:00 → D.OPS 08-19 12:47
PROVIDERS: Anesthesiology; ATTEND Urology
DX: N40.1 Benign prostatic hyperplasia with lower urinary tract symptoms (principal); R33.8 Other retention of urine; I25.119 Atherosclerotic heart disease of native coronary artery with unspecified angina pectoris; I73.9 Peripheral vascular disease, unspecified; E11.9 Type 2 diabetes mellitus without complications; Z79.84 Long term (current) use of oral hypoglycemic drugs

== ENCOUNTER 2020-12-09 15:12 | Inpatient (IN) | payer MEDICARE ==
[~2020-12-09] VITALS: Ht 170.2 cm; Wt 86.4 kg
[~2020-12-09 15:12] MED LIST changes: +CYCLOBENZAPRINE10 MG PO
[2020-12-09 15:31] LABS: APTT 27.3 SECONDS (22.8-39.4); BASOPHILS 0.4 % (0-2); EOSINOPHILS 0.1 % (0-7); HEMATOCRIT 41.6 % (42.0-54.0); HEMOGLOBIN 13.8 g/dL (13.5-17.5); INR 1.21 (0.85-1.17); LYMPHOCYTES 8.3 % (15-50); MCH 30.4 pg (26.0-34.0); MCHC 33.1 g/dL (31.0-37.0); MCV 91.8 fL (80.0-100.0); MEAN PLATELET VOLUME 9.1 fL (7.4-10.4); NEUTROPHILS 85.2 % (40-80); PROTIME 14.2 SECONDS (11.6-15.0); RBC 4.53 10x6/uL (4.20-6.10); RDW 13.4 % (11.5-14.5); WBC 14.1 10x3/uL (4.8-10.8)
[2020-12-09 15:32] LABS: CALC OSMOLALITY 278 mosm/kg (275-300); CALCIUM 8.3 mg/dL (8.5-10.1); CHLORIDE - SERUM 100 mmol/L (98-107); CREATININE - SERUM 1.1 mg/dL (0.6-1.3); GLUCOSE 201 mg/dL (74-106); POTASSIUM - SERUM 3.8 mmol/L (3.5-5.1); SODIUM 136 mmol/L (136-145); UREA NITROGEN 14 mg/dL (7-18); eGFR NON AFRICAN AMERICAN 71 mL/min (90-120)
[2020-12-09 15:33] LABS: PLATELET COUNT 144 10x3/uL (130-400)
[2020-12-09 15:47] LABS: ALBUMIN 3.2 g/dL (3.4-5.0); ALKALINE PHOSPHATASE 88 U/L (30-120); ALT (SGPT) 45 U/L (10-68); BILIRUBIN - TOTAL 2.34 mg/dL (0.2-1.3); CKMB 0.1 U/L (0.0-3.6); CREATINE KINASE 36 UL (21-232); PROTEIN - SERUM 6.9 g/dL (6.4-8.2); TROPONIN-I < 0.017 ng/mL (0.000-0.060)
[2020-12-09 16:07] LABS: THYROID STIMULATING HORMONE 0.61 uIU/mL (0.36-3.74)
[2020-12-09 16:20] LABS: MAGNESIUM - SERUM 1.4 mg/dL (1.8-2.4)
[2020-12-09 16:57] LABS: UDS - AMPHET POSITIVE QUAL (NEGATIVE); UDS - BARB NEGATIVE QUAL (NEGATIVE); UDS - BENZO NEGATIVE QUAL (NEGATIVE); UDS - COCAINE NEGATIVE QUAL (NEGATIVE); UDS - OPIATE NEGATIVE QUAL (NEGATIVE); UDS - PCP NEGATIVE QUAL (NEGATIVE); UDS - THC NEGATIVE QUAL (NEGATIVE)
[2020-12-09 17:20] LABS: BILIRUBIN NEGATIVE (NEGATIVE); KETONE TRACE mg/dL (< 1+); NITRITE NEGATIVE (NEGATIVE); PH 6.5 (5.0-8.0); SQUAMOUS EPITHELIAL 3 HPF (0-4); UROBILINOGEN 6 mg/dL (< 2); WHITE CELLS - URINE 13 HPF (0-1)
--- NOTE | 2020-12-09 20:03 | NUR ---
Jayna Díaz - Daughter - [phone].
[2020-12-09 20:05] VITALS: BP 144/63
--- NOTE | 2020-12-09 21:10 | NUR ---
POC glucose 155
[2020-12-09 21:17] VITALS: BP 149/73
--- NOTE | 2020-12-09 22:51 | NUR ---
report called to BEATRIZ Hudson
--- NOTE | 2020-12-10 01:35 | NUR ---
RECEIVED TO ROOM VIA WHEELCHAIR FROM ER. ALERT, ORIENTED. NO COMPLAINTS AT PRESENT. IV TO LFA INTACT WITHOUT REDNESS OR EDEMA NOTED. ORIENTED TO ROOM.CL IN REACH
[2020-12-10 01:57] VITALS: BP 114/80; Ht 170.2 cm; Wt 86.4 kg
[2020-12-10 06:36] LABS: BASOPHILS 0.2 % (0-2); EOSINOPHILS 1.1 % (0-7); HEMATOCRIT 35.5 % (42.0-54.0); HEMOGLOBIN 12.1 g/dL (13.5-17.5); LYMPHOCYTES 15.4 % (15-50); MCV 91.1 fL (80.0-100.0); MEAN PLATELET VOLUME 9.9 fL (7.4-10.4); MONOCYTES 7.2 % (2-11); NEUTROPHILS 76.1 % (40-80); PLATELET COUNT 109 10x3/uL (130-400); RBC 3.89 10x6/uL (4.20-6.10); RDW 13.3 % (11.5-14.5); WBC 7.1 10x3/uL (4.8-10.8)
[2020-12-10 07:07] LABS: ALBUMIN 2.4 g/dL (3.4-5.0); ALKALINE PHOSPHATASE 65 U/L (30-120); BILIRUBIN - TOTAL 1.98 mg/dL (0.2-1.3); CARBON DIOXIDE 24.9 mmol/L (21.0-32.0); CHLORIDE - SERUM 105 mmol/L (98-107); CREATININE - SERUM 0.9 mg/dL (0.6-1.3); MAGNESIUM - SERUM 1.6 mg/dL (1.8-2.4); PROTEIN - SERUM 5.6 g/dL (6.4-8.2); SODIUM 137 mmol/L (136-145); UREA NITROGEN 11 mg/dL (7-18); eGFR NON AFRICAN AMERICAN 89 mL/min (90-120)
[2020-12-10 07:08] LABS: ALT (SGPT) 29 U/L (10-68); CALC OSMOLALITY 273 mosm/kg (275-300); GLUCOSE 111 mg/dL (74-106); POTASSIUM - SERUM 3.2 mmol/L (3.5-5.1)
--- NOTE | 2020-12-10 07:10 | NUR ---
REC'D IN BED AWAKE AND ALERT. RESP EVEN AND UNLABORED WITH NO DISTRESS NOTED CAN EXPRESS NEEDS AND WANTS. NO C/O NOTED OR VOICED AT THIS TIME. ASSESSMENT COMPLETED. C/L IN REACH AT BEDSIDE.
[2020-12-10 09:23] VITALS: BP 99/45
[2020-12-10 12:55] VITALS: BP 127/58
--- NOTE | 2020-12-10 13:36 | NUR ---
I have reviewed this patient and I concur with the Shift Assessment completed by the Licensed Practical Nurse today this shift.
[2020-12-10 16:46] VITALS: BP 108/48
[2020-12-10 20:00] VITALS: BP 104/60
[2020-12-11] VITALS (7 sets, daily range): BP systolic 108–148; BP diastolic 56–72
[2020-12-11 05:52] LABS: BASOPHILS 0.4 % (0-2); EOSINOPHILS 6.1 % (0-7); HEMATOCRIT 36.3 % (42.0-54.0); HEMOGLOBIN 12.1 g/dL (13.5-17.5); LYMPHOCYTES 22.1 % (15-50); MCH 30.9 pg (26.0-34.0); MCHC 33.4 g/dL (31.0-37.0); MCV 92.4 fL (80.0-100.0); MEAN PLATELET VOLUME 9.9 fL (7.4-10.4); MONOCYTES 11.6 % (2-11); NEUTROPHILS 59.8 % (40-80); PLATELET COUNT 107 10x3/uL (130-400); RBC 3.93 10x6/uL (4.20-6.10); RDW 13.5 % (11.5-14.5)
[2020-12-11 05:56] LABS: INR 1.24 (0.85-1.17); PROTIME 14.4 SECONDS (11.6-15.0)
[2020-12-11 06:07] LABS: ALBUMIN 2.4 g/dL (3.4-5.0); ALKALINE PHOSPHATASE 72 U/L (30-120); ALT (SGPT) 25 U/L (10-68); BILIRUBIN - TOTAL 0.87 mg/dL (0.2-1.3); CALC OSMOLALITY 279 mosm/kg (275-300); CARBON DIOXIDE 23.4 mmol/L (21.0-32.0); CHLORIDE - SERUM 107 mmol/L (98-107); CREATININE - SERUM 0.8 mg/dL (0.6-1.3); GLUCOSE 133 mg/dL (74-106); MAGNESIUM - SERUM 1.8 mg/dL (1.8-2.4); SODIUM 139 mmol/L (136-145); UREA NITROGEN 12 mg/dL (7-18); eGFR NON AFRICAN AMERICAN > 90 mL/min (90-120)
[2020-12-11 06:11] LABS: POTASSIUM - SERUM 3.8 mmol/L (3.5-5.1)
[2020-12-11 06:23] LABS: WBC 4.3 10x3/uL (4.8-10.8)
--- NOTE | 2020-12-11 07:15 | NUR ---
REC'D IN BED AWAKE. RESP EVEN AND UNLABORED WITH NO DISTRESS NOTED. CAN EXPRESS NEEDS AND WANTS. NO C/O NOTED OR VOICED. ASSESSMENT COMPLETED. C/L IN REACH.
--- NOTE | 2020-12-11 17:34 | NUR ---
I have reviewed this patient and I concur with the Shift Assessment completed by the Licensed Practical Nurse today this shift.
[2020-12-12 03:53] VITALS: BP 162/72
[2020-12-12 05:58] LABS: BASOPHILS 0.5 % (0-2); EOSINOPHILS 8.6 % (0-7); HEMATOCRIT 36.9 % (42.0-54.0); HEMOGLOBIN 12.5 g/dL (13.5-17.5); LYMPHOCYTES 24.6 % (15-50); MCH 30.8 pg (26.0-34.0); MCHC 33.7 g/dL (31.0-37.0); MCV 91.3 fL (80.0-100.0); MEAN PLATELET VOLUME 9.1 fL (7.4-10.4); MONOCYTES 8.8 % (2-11); NEUTROPHILS 57.5 % (40-80); PLATELET COUNT 128 10x3/uL (130-400); RBC 4.04 10x6/uL (4.20-6.10); RDW 13.8 % (11.5-14.5); WBC 3.8 10x3/uL (4.8-10.8)
[2020-12-12 06:06] LABS: INR 1.14 (0.85-1.17); PROTIME 13.6 SECONDS (11.6-15.0)
[2020-12-12 06:26] LABS: ALBUMIN 2.4 g/dL (3.4-5.0); ALKALINE PHOSPHATASE 69 U/L (30-120); BILIRUBIN - TOTAL 0.72 mg/dL (0.2-1.3); CALC OSMOLALITY 281 mosm/kg (275-300); CALCIUM 7.9 mg/dL (8.5-10.1); CARBON DIOXIDE 23.1 mmol/L (21.0-32.0); CHLORIDE - SERUM 108 mmol/L (98-107); CREATININE - SERUM 0.9 mg/dL (0.6-1.3); GLUCOSE 148 mg/dL (74-106); MAGNESIUM - SERUM 1.9 mg/dL (1.8-2.4); POTASSIUM - SERUM 3.6 mmol/L (3.5-5.1); PROTEIN - SERUM 6.2 g/dL (6.4-8.2); SODIUM 140 mmol/L (136-145); UREA NITROGEN 12 mg/dL (7-18); eGFR NON AFRICAN AMERICAN 89 mL/min (90-120)
[2020-12-12 06:27] LABS: ALT (SGPT) 32 U/L (10-68)
--- NOTE | 2020-12-12 07:30 | NUR ---
REC'D IN BED EYES OPEN WATCHING TV. RESP EVEN AND UNALBORED WITH NO DISTRESS NOTED. CAN EXPRESS NEEDS AND WANTS. NO C/O NOTED OR VOICED. ASSESSMENT COMPLETED. C/L IN REACH AT BEDSIDE.
[2020-12-12 07:41] VITALS: BP 135/66
[2020-12-12 11:03] VITALS: BP 143/71
[2020-12-12] MEDS ORDERED: FLORAJEN DIGES1 EACH PO (11:23)
[2020-12-12] MEDS ORDERED: PROTONIX40 MG PO (11:23)
[2020-12-12] MEDS ORDERED: CHRONULAC30 ML PO (11:23)
[2020-12-12] MEDS ORDERED: MULTI-DAY VITAM1 TAB PO (11:23)
[2020-12-12] MEDS ORDERED: FOLIC ACID1 MG PO (11:23)
[2020-12-12] MEDS ORDERED: VITAMIN B-1100 M1 PO (11:24)
[2020-12-12] MEDS ORDERED: CLINDAMYCIN HC300 MG PO (11:25)
--- NOTE | 2020-12-12 14:11 | NUR ---
I have reviewed this patient and I concur with the Shift Assessment completed by the Licensed Practical Nurse today this shift.
--- NOTE | 2020-12-12 15:23 | NUR ---
DC HOME IN STABLE CONDITION AT THIS TIME WITH ALL PERSONAL BELONGING. IV DC PRIOR. VOICE UNDERSTANDING OF DC INSTRUCTION.
== END 2020-12-12 15:26 | disposition home or self-care (01) | DRG 871 ==
LOC: D.ER 15:12 → D.MS 21:56
PROVIDERS: Emergency Medicine; Family Medicine; ADMIT Family Medicine; ATTEND Family Medicine
DX: A41.9 Sepsis, unspecified organism (principal); G93.41 Metabolic encephalopathy; L03.116 Cellulitis of left lower limb; F32.9 Major depressive disorder, single episode, unspecified; E11.65 Type 2 diabetes mellitus with hyperglycemia; F15.90 Other stimulant use, unspecified, uncomplicated; I48.0 Paroxysmal atrial fibrillation; E83.42 Hypomagnesemia; Z79.84 Long term (current) use of oral hypoglycemic drugs; Z95.1 Presence of aortocoronary bypass graft; I25.119 Atherosclerotic heart disease of native coronary artery with unspecified angina pectoris